=== PATIENT | female | born 1985 | race African-American/Black ===

== ENCOUNTER 2025-06-21 16:07 | Emergency (ER) | payer SELFPAY ==
[~2025-06-21] VITALS: Ht 160 cm; Wt 63.6 kg
[2025-06-21 16:51] LABS: PLATELET COUNT (AUTO) 299 K/uL (150-450); RED BLOOD CELL COUNT(AUTO) 4.59 MIL/uL (4.00-5.20); RED CELL DISTRIBUTION WIDTH 14.3 % (11.5-14.5); WHITE BLOOD COUNT (AUTO) 4.7 K/uL (4.5-11.0)
[2025-06-21 17:02] LABS: CALCIUM, TOTAL 8.8 mg/dL (8.8-10.5); CREATININE 0.82 mg/dL (0.60-1.30); GLOMERULAR FILTR. RATE CALC > 60 mL/min (>60); GLUCOSE,RANDOM 86 mg/dL (70-110); SODIUM SERUM 137 mmol/L (136-145); UREA NITROGEN, BLOOD 10 mg/dL (7-18)
[2025-06-21 17:17] LABS: ASPARTATE AMINOTRANSFERASE 17.0 U/L (15-37); TOTAL PROTEIN, SERUM 7.1 g/dL (6.4-8.2)
[2025-06-21] MEDS: ACETAMINOPHEN 500 MG TABLET PO ONE (17:21)
[2025-06-21 18:20] LABS: APPEARANCE,URINE CLEAR (CLEAR); GLUCOSE, URINE (UA) NEGATIVE (NEGATIVE); LEUKOCYTE ESTERASE ,URINE NEGATIVE (NEGATIVE); NITRATE,URINE NEGATIVE (NEGATIVE); OCCULT BLOOD,URINE LARGE (NEGATIVE); SPECIFIC GRAVITIY, URINE 1.031 (1.003-1.030)
[2025-06-21 18:31] LABS: SQUAMOUS EPITHELIAL CELL,UR Rare /LPF (None Seen)
[2025-06-21 22:00] VITALS: BP 116/71; PULSE 68; RESP 18; TEMP 97.9; O2SAT 99
== END 2025-06-21 22:13 | disposition home or self-care (01) ==
LOC: EMS 16:07
DX: D25.9 Leiomyoma of uterus, unspecified (principal); R10.2 Pelvic and perineal pain
CPT/HCPCS: 76856; 80048; 80076; 81001; 84702; 85025; 99284